=== PATIENT | male | born 1960 | race Caucasian/White ===

== ENCOUNTER 2018-09-18 17:26 | Emergency (ER) | payer BC, OTHER ==
--- NOTE | 2018-09-18 17:46 | EDM.PDOC ---
ED HPI GENERAL MEDICAL PROBLEM - General Chief Complaint: General Stated Complaint: elevated bp and blurred vision for 2 days; patient states he was sent over to ED by his eye doctor, Dr. Germaine García. Nurse recieved call from Dr. García whom is concerned about possible arteritis, as well as uncontrolled blood pressure. Per Dr. García's note, patient has optic nerve edema of right eye. Patient has a referral to go to Opthamology in [facility] on Friday per Dr. García. Patient denies any SMITH, scalp pain, fever , jaw pain or any other symptoms but states he quit taking his Lisinopril due to it making him cough 3-4 yrs ago. Also states that he has been borderline diabetic for 4-5 years. He denies any pain in eye. 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 Germaine García, OD whom wants patient to be checked for arteritis.) - Related Data Allergies Allergy/AdvReac Type Severity Reaction Status Date / Time No Known Allergies Allergy Verified 09/18/18 17:26 Home Meds: Home Meds . [No Known Home Meds] 09/18/18 [History] Past Medical History Cardiovascular History: Reports: Hypertension Neurological History: Reports: Head Trauma (Brain bleed in 2012 when he fell off tractor.) Endocrine/Metabolic History: Reports: Diabetes, Type II (borderline diabetes) Social & Family History - Family History Family Medical History: Noncontributory Cardiac: Reports: Hypertension, [place] Endocrine/Metabolic: Reports: Diabetes, type II - Tobacco Use Smoking Status *Q: Never Smoker - Caffeine Use Caffeine Use: Reports: Coffee - Recreational Drug Use Recreational Drug Use: No ED ROS GENERAL - Review of Systems Review Of Systems: See Below Constitutional: Reports: No Symptoms HEENT: Reports: Vision Change (blurred vision in right eye for 2 days) Respiratory: Reports: No Symptoms Cardiovascular: Reports: No Symptoms Endocrine: Reports: No Symptoms GI/Abdominal: Reports: No Symptoms : Reports: No Symptoms Musculoskeletal: Reports: No Symptoms Skin: Reports: No Symptoms Neurological: Reports: No Symptoms Psychiatric: Reports: No Symptoms Hematologic/Lymphatic: Reports: No Symptoms Immunologic: Reports: No Symptoms ED EXAM, GENERAL - Physical Exam Exam: See Below Exam Limited By: No Limitations General Appearance: Alert, WD/WN, No Apparent Distress Eye Exam: Right Eye: Vision Changes (blurred vision; visual acuity test is 20/ 20 in both eyes), Other (optic nerve edema per pourer buggy ladle report), Bilateral Eye: EOMI (intact), PERRL Ears: Normal External Exam Nose: Normal Inspection Head: Atraumatic, Normocephalic Neck: Normal Inspection, Supple, Non-Tender, Full Range of Motion Respiratory/Chest: No Respiratory Distress Cardiovascular: Normal Peripheral Pulses, Regular Rate, Rhythm, No Edema, No Gallop, No JVD, No Murmur, No Rub Peripheral Pulses: 2+: Radial (L), Radial (R) GI/Abdominal: Normal Bowel Sounds, Soft, Non-Tender, No Organomegaly (Male) Exam: Deferred Rectal (Males) Exam: Deferred Extremities: Normal Inspection, Normal Range of Motion, Non-Tender, No Pedal Edema, Normal Capillary Refill Neurological: Alert, Oriented, CN II-XII Intact, Normal Cognition, Normal Gait Psychiatric: Normal Affect, Normal Mood Skin Exam: Warm, Dry, Intact, Normal Color, No Rash Course - Vital Signs Last Recorded V/S: Last Vital Signs Temp 37.3 C 09/18/18 17:27 Pulse 82 09/18/18 17:27 Resp 16 09/18/18 17:27 BP 182/75 H 09/18/18 19:06 Pulse Ox 97 09/18/18 17:27 - Orders/Labs/Meds Orders: Active Orders 24 hr Category Date Time Status Vision Test [RC] ASDIRECTED Care 09/18/18 17:39 Active Sodium Chloride 0.9% [Saline Flush] Med 09/18/18 18:23 Active 10 ml FLUSH ASDIRECTED PRN Saline Lock Insert [OM.PC] Routine Oth 09/18/18 18:23 Ordered Medication Orders Sodium Chloride (Saline Flush) 10 ml FLUSH ASDIRECTED PRN PRN Reason: Keep Vein Open Labs: Laboratory Tests 09/18/18 09/18/18 09/18/18 Range/Units 17:29 17:30 17:30 ESR 13 (0-15) mm/hr Sodium 140 (136-145) mEq/L Potassium 3.9 (3.5-5.0) mEq/L Chloride 101 (98-106) mEq/L Carbon Dioxide 27 (21-32) mmol/L BUN 15 (7-18) mg/dL Creatinine 1.5 H (0.7-1.3) mg/dL Est Cr Clr Drug Dosing 48.96 mL/min Estimated GFR (MDRD) 48 L (>=60) mL/min Glucose 326 H* (75-99) mg/dL Hemoglobin A1c (4.8-6.2) % Calcium 9.0 (8.4-10.1) mg/dL Total Bilirubin 0.5 (0.0-1.0) mg/dL AST 28 (15-37) U/L ALT 42 (12-78) U/L Alkaline Phosphatase 78 (46-116) U/L C-Reactive Protein 0.2 (0.2-0.8) mg/dL Total Protein 7.8 (6.4-8.2) g/dL Albumin 3.8 (3.4-5.0) g/dL 09/18/18 Range/Units 17:30 ESR (0-15) mm/hr Sodium (136-145) mEq/L Potassium (3.5-5.0) mEq/L Chloride (98-106) mEq/L Carbon Dioxide (21-32) mmol/L BUN (7-18) mg/dL Creatinine (0.7-1.3) mg/dL Est Cr Clr Drug Dosing mL/min Estimated GFR (MDRD) (>=60) mL/min Glucose (75-99) mg/dL Hemoglobin A1c 10.0 H (4.8-6.2) % Calcium (8.4-10.1) mg/dL Total Bilirubin (0.0-1.0) mg/dL AST (15-37) U/L ALT (12-78) U/L Alkaline Phosphatase (46-116) U/L C-Reactive Protein (0.2-0.8) mg/dL Total Protein (6.4-8.2) g/dL Albumin (3.4-5.0) g/dL Meds: Medications Generic Name Dose Route Start Last Admin Trade Name Ellis PRN Reason Stop Dose Admin Sodium Chloride 10 ml 09/18/18 18:23 Saline Flush FLUSH ASDIRECTED PRN Keep Vein Open Discontinued Medications Generic Name Dose Route Start Last Admin Trade Name Ellis PRN Reason Stop Dose Admin Amlodipine Besylate 2.5 mg 09/18/18 17:53 09/18/18 17:54 Norvasc PO 09/18/18 17:54 Not Given ONETIME ONE Amlodipine Besylate 5 mg 09/18/18 17:53 09/18/18 17:59 Norvasc PO 09/18/18 17:54 5 mg ONETIME ONE Administration Sodium Chloride 500 mls @ 999 mls/hr 09/18/18 18:30 Normal Saline IV .BOLUS ROYAL Sodium Chloride 500 mls @ 999 mls/hr 09/18/18 18:33 09/18/18 18:37 Normal Saline IV 09/18/18 19:02 999 mls/hr NOW STA Administration Sodium Chloride Confirm 09/18/18 18:21 09/18/18 18:37 Normal Saline Administered 09/18/18 18:22 Not Given Dose 1,000 mls @ as directed .ROUTE .STK-MED ONE Insulin Human Regular 5 unit 09/18/18 18:27 09/18/18 18:37 Novolin R SUBCUT 09/18/18 18:28 5 units ONETIME ONE Administration Protocol Insulin Human Regular Confirm 09/18/18 19:15 09/18/18 19:18 Novolin R Administered 09/18/18 19:16 Not Given Dose 1,000 unit .ROUTE .STK-MED ONE Insulin Human Regular 5 unit 09/18/18 19:10 09/18/18 19:20 Novolin R IVPUSH 09/18/18 19:11 5 units ONETIME ONE Administration Protocol - Re-Assessments/Exams Free Text/Narrative Re-Assessment/Exam: Blood sugar decreased to 250 after insulin. Blood pressure decreased. Patient feeling fine without complaint. Stable. 09/18/18 19:44 09/18/18 19:54 Departure - Departure Time of Disposition: 19:46 Disposition: Home, Self-Care 01 Condition: Good Clinical Impression: HTN (hypertension), Diabetes 1.5, managed as type 2, Renal insufficiency, Blurred vision, right eye - Discharge Information *PRESCRIPTION DRUG MONITORING PROGRAM REVIEWED*: Not Applicable *COPY OF PRESCRIPTION DRUG MONITORING REPORT IN PATIENT JOHNY: Not Applicable Referrals: PCP,Unknown [Primary Care Provider] - Forms: ED Department Discharge Additional Instructions: Take prescribed medications as directed. Diabetic diet. Exercise daily. Follow up with Dr. Keane on Friday on HTN and DM. Follow up with Opthamology on Friday. Follow up with Nephrology as soon as possible. Discussed treatment plan with patient and whom verbalize understanding and agreement. - Problem List & Annotations (1) HTN (hypertension) SNOMED Code(s): 23987107 Code(s): I10 - ESSENTIAL (PRIMARY) HYPERTENSION Status: Acute Current Visit: Yes (2) Diabetes 1.5, managed as type 2 SNOMED Code(s): 357556250 Code(s): E10.9 - TYPE 1 DIABETES MELLITUS WITHOUT COMPLICATIONS Status: Acute Current Visit: Yes (3) Renal insufficiency SNOMED Code(s): 366644279, 608239105 Code(s): N28.9 - DISORDER OF KIDNEY AND URETER, UNSPECIFIED Status: Acute Current Visit: Yes - My Orders Last 24 Hours: My Active Orders 09/18/18 17:39 Vision Test [RC] ASDIRECTED 09/18/18 18:23 Sodium Chloride 0.9% [Saline Flush] 10 ml FLUSH ASDIRECTED PRN Saline Lock Insert [OM.PC] Routine - Assessment/Plan Last 24 Hours: My Active Orders 09/18/18 17:39 Vision Test [RC] ASDIRECTED 09/18/18 18:23 Sodium Chloride 0.9% [Saline Flush] 10 ml FLUSH ASDIRECTED PRN Saline Lock Insert [OM.PC] Routine Assessment:: Consulted with Dr. Ortiz, opthamologist at [facility] in [place] and discussed case with him regardig optic nerve edema in right eye, uncontrolled BP , uncontrolled blood sugar and onset of blurred vision x [address] Ortiz recommends patient being seen in [facility] next few days for further work up. Suspect Diabetic retinopathy/ papillitis. Vision change HTN Diabetes Renal insufficiency Plan: Vision change, possible diabetic retinopathy/ papillitis. Patient to follow up with Dr. Ortiz opthamologist at [facility] in [facility] on Friday. Spoke to Dr. García via phone and discussed results with her. She will get patient a f/u appt. on Friday with [facility] in [place]. HTN- started on Norvasc 5 mg daily and needs to follow up with PCP on Friday. Diabetes- given insulin 10 units and IVF. Start Glipazide 5 mg daily and f/u with PCP Friday. Counseled patient in diabetic diet and to avoid sugars and monitor carbs closely. Avoid alcohol. Renal insufficiency- follow up with Nephrology as soon as possible.
[2018-09-18] MEDS ORDERED: amLODIPine 2.5 MG Tab PO ONE ×2 (17:53)
[2018-09-18] MEDS ORDERED: Sodium Chloride 0.9% 1,000 ML ONE (18:21)
[2018-09-18] MEDS ORDERED: Sodium Chloride 0.9% 10 ML Syringe FLUSH PRN (18:23)
[2018-09-18] MEDS ORDERED: Insulin Regular, Human 100 Units/ML 10 ML Vial SUBCUT ONE (18:27)
[2018-09-18] MEDS ORDERED: Sodium Chloride 0.9% 500 ML IV SCH (18:30)
[2018-09-18] MEDS ORDERED: Sodium Chloride 0.9% 500 ML IV STA (18:33)
[2018-09-18 19:07] VITALS: BP 182/75
[2018-09-18] MEDS ORDERED: Insulin Regular, Human 100 Units/ML 10 ML Vial IVPUSH ONE (19:10)
[2018-09-18] MEDS ORDERED: Insulin Regular, Human 100 Units/ML 10 ML Vial ONE (19:15)
== END 2018-09-18 19:55 | disposition home or self-care (01) ==
LOC: CC.ED 17:26
DX: I10 Essential (primary) hypertension (principal); E11.9 Type 2 diabetes mellitus without complications; H53.8 Other visual disturbances; N28.9 Disorder of kidney and ureter, unspecified
CPT/HCPCS: 36415; 80053; 83036; 85651; 86140; 96372; 96374; 99283; A9270; J7040; J1815-GY

== ENCOUNTER → 2019-01-15 | Day surgery (SDC) | payer OTHER ==
[~2019-01-15] MED LIST: Lactated Ringers 1,000 ML IV SCH; Propofol 200 MG/20 ML SDV IV ONE
[2019-01-15 10:10] VITALS: BP 146/65
--- NOTE | 2019-01-15 12:03 | OR ---
DATE OF OPERATION: 01/15/2019 PREOPERATIVE DIAGNOSIS: SCREENING COLONOSCOPY. POSTOPERATIVE DIAGNOSIS: SCREENING COLONOSCOPY. SURGEON: Tyler Keane MD PROCEDURE: FULL-LENGTH COLONOSCOPY. ANESTHESIA: BRIDAL SALES CONSULTANT. COMPLICATIONS: None. SPECIMEN: None. FINDINGS: 1. Full-length colonoscopy. 2. Minimal sigmoid diverticulosis. 3. Perianal polyp, greater than a cm with thick stalk. RECOMMENDATIONS: Recommend surgical removal with anoscope for this polyp. INDICATIONS: The patient was in for routine physical. He has never had a prior colonoscopy. We recommended a screening procedure. DESCRIPTION OF PROCEDURE: The patient was prepped and draped, placed in the left lateral decubitus position. A lubricated Olympus colonoscope was inserted and easily advanced to the cecum. I was able to directly visualize the ileocecal valve and appendiceal orifice. The bowel prep was fine. Upon withdrawal of the scope, the cecum, ascending and transverse colons were completely benign. Throughout the entire left colon, the patient may have had a few scattered diverticula, but very minimal. No signs of any other worrisome polyps, masses, ulceration, bleeding sites. No vascular abnormalities or signs of colitis. The rectal vault appeared unremarkable. With retroflexion of the scope, the patient has a large stalked tubular adenoma, runs right up to the anal ring and it is very thick-stalked. We did put a snare around this and attempted to cut through with a hot snare and just could not. It was worried about creating any thermal injury and so we elected to stop at this point and this is something that is easily amenable to removal with anoscope and we will have Dr. Zavala do that. Air was suctioned from the colon, scope was removed, the patient was stable in the recovery room. HENRIQUE/CRYSTAL /[id number]
== END ==
LOC: CC.SDS 07:59
PROVIDERS: ATTEND Family Medicine
DX: Z12.11 Encounter for screening for malignant neoplasm of colon (principal); D12.9 Benign neoplasm of anus and anal canal; K57.30 Diverticulosis of large intestine without perforation or abscess without bleeding; I10 Essential (primary) hypertension; E11.9 Type 2 diabetes mellitus without complications; E78.5 Hyperlipidemia, unspecified; Z79.84 Long term (current) use of oral hypoglycemic drugs; Z79.899 Other long term (current) drug therapy
CPT/HCPCS: J2704; J7120

== ENCOUNTER → 2019-02-25 | Day surgery (SDC) | payer OTHER ==
[~2019-02-25] MED LIST changes: -Lactated Ringers 1,000 ML IV SCH; +Midazolam 1 MG/ML 2 ML SDV ONE; -Propofol 200 MG/20 ML SDV IV ONE
[2019-02-25] MEDS: Lactated Ringers 1,000 ML IV SCH (07:53)
[2019-02-25] MEDS: Midazolam 1 MG/ML 2 ML SDV IV ONE (09:10)
[2019-02-25 10:34] VITALS: BP 112/55
--- NOTE | 2019-02-25 16:08 | OR ---
DATE OF OPERATION: 02/25/2019 PREOPERATIVE DIAGNOSIS: ANORECTAL POLYP. POSTOPERATIVE DIAGNOSIS: ANORECTAL POLYP. SURGEON: Rinku Zavala MD PROCEDURE: FLEXIBLE SIGMOIDOSCOPY. ANESTHESIA: IV Versed. SPECIMEN: None. FINDINGS: Normal flex-sig. INDICATION FOR PROCEDURE: This 58-year-old male had a colonoscopy a few weeks ago. He had at that time a relatively large 4-5 mm polyp, just at the upper end of the internal hemorrhoid complex. This was snared with a loop and cauterized, however, could not cut through the polyp. Request was for re-examination by me instead of the family practice Dr. Keane. DESCRIPTION OF PROCEDURE: After IV Versed, a colonoscope was inserted into the rectum; this was passed up to the upper left colon. The remaining part of the colon is clear. In the rectum, the scope was retroflexed and there are no remnants of the polyp that was initially seen. I am sure that the cauterization done on the previous scope necrotized the polyp and it is no longer present. No further need for followup. ROBIN/CRYSTAL /[id number]
== END ==
LOC: CC.SDS 07:23
PROVIDERS: ATTEND Surgery
DX: Z09 Encounter for follow-up examination after completed treatment for conditions other than malignant neoplasm (principal); Z87.19 Personal history of other diseases of the digestive system
CPT/HCPCS: J2250; J7120